=== PATIENT | female | born 1940 | race Caucasian/White ===

== ENCOUNTER 2019-01-21 08:25 | Day surgery (SDC) | payer OTHER, BC ==
[2019-01-20 14:02] VITALS: BMI 22.8
[2019-01-21 09:46] VITALS: TEMP 97.9
[2019-01-21 12:05] VITALS: BP 128/53; PULSE 70
--- NOTE | 2019-01-24 18:08 | PATH ---
Surgical Pathology Report Patient Name: ROMAN RICHTER [facility]. Rec. #: [id number] /Age/Gender: 1940 (Age: 78) / F Account: [id number] Location: U-ENDOSCOPY Taken: 01/21/2019 Received: 01/21/2019 Reported: 01/24/2019 Physicians: Chad Shi M.D. Specimen(s) Received A: BODY/ANTRUM B: GE JUNCTION C: RECTAL POLYP D: COLON BIOPSY Clinical History Gastric metaplasia surveillance, screen for Littlejohn's, polyp surveillance Postoperative diagnosis: Hiatal hernia, GERD, atrophic gastritis, rectal polyp, proximal transverse colon polyp, diverticulosis Final Diagnosis A. STOMACH, BODY/ANTRUM, BIOPSY: GASTRIC MUCOSA WITH MILD CHRONIC GASTRITIS AND FOCAL DILATED GLANDS. IMMUNOHISTOCHEMICAL STAIN FOR H. PYLORI IS NEGATIVE. B. GE JUNCTION, BIOPSY: SQUAMOUS MUCOSA WITH CHANGES OF MODERATE REFLUX ESOPHAGITIS. 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 NO DYSPLASIA IDENTIFIED. C. RECTAL POLYP, BIOPSY: HYPERPLASTIC POLYP. D. PROXIMAL TRANSVERSE COLON, POLYP, BIOPSY: TUBULAR ADENOMA. Electronically Signed Rose Sanon M.D. Gross Description A. Received in formalin, labeled "body/antrum" are 8 hensley, irregular portions of soft tissue measuring 0.2 and 0.4 cm. in greatest dimension. The specimens are submitted in toto in one cassette. B. Received in formalin, labeled "GE junction" are 6 hensley, irregular portions of soft tissue measuring 0.1 and 0.3 cm. in greatest dimension. The specimens are submitted in toto in one cassette. C. Received in formalin, labeled "rectal polyp" are 2 hensley, irregular portions of soft tissue measuring 0.2 and 0.3 cm. in greatest dimension. The specimens are submitted in toto in one cassette. D. Received in formalin, labeled "proximal transverse colon polyp" are 2 hensley, irregular portions of soft tissue measuring 0.1 and 0.2 cm. in greatest dimension. The specimens are submitted in toto in one cassette. MLSZ/01/21/2019 sanml/01/21/2019
== END 2019-01-21 10:30 | disposition home or self-care (01) ==
LOC: JASU-ENDO 08:25
PROVIDERS: ATTEND Internal Medicine Gastroenterology
PROC: 0DBL8ZX Excision of Transverse Colon, Via Natural or Artificial Opening Endoscopic, Diagnostic (ICD-10-PCS; 2019-01-21)
PROC: 0DB38ZX Excision of Lower Esophagus, Via Natural or Artificial Opening Endoscopic, Diagnostic (ICD-10-PCS; 2019-01-21)
PROC: 0DB68ZX Excision of Stomach, Via Natural or Artificial Opening Endoscopic, Diagnostic (ICD-10-PCS; 2019-01-21)
PROC: 0DBP8ZX Excision of Rectum, Via Natural or Artificial Opening Endoscopic, Diagnostic (ICD-10-PCS; principal; 2019-01-21 08:45)
DX: Z12.11 Encounter for screening for malignant neoplasm of colon (principal); Z80.0 Family history of malignant neoplasm of digestive organs; Z83.71 Family history of colonic polyps; K62.1 Rectal polyp; K64.8 Other hemorrhoids; K57.30 Diverticulosis of large intestine without perforation or abscess without bleeding; D12.3 Benign neoplasm of transverse colon; K21.9 Gastro-esophageal reflux disease without esophagitis; K44.9 Diaphragmatic hernia without obstruction or gangrene; K29.50 Unspecified chronic gastritis without bleeding
CPT/HCPCS: 88305-TC; 88342-TC

== ENCOUNTER 2020-01-19 10:56 | Emergency (ER) | payer OTHER, BC ==
[2020-01-19 11:07] VITALS: BP 154/77; PULSE 94; TEMP 98.2; BMI 21.3
--- NOTE | 2020-01-19 11:37 | PDOC ---
History of Present Illness - General Chief Complaint: Pain Stated Complaint: RT ARM PAIN Time Seen by Provider: 01/19/20 11:18 History Source: Patient Exam Limitations: No Limitations - History of Present Illness Initial Comments: 01/19/20 11:34 Patient is a 79-year-old female who presents to the ED with complaint of right axillary pain that started 2 weeks ago. She states the pain increases with movement and with touching the area. She has been full weightbearing with a wa lker starting 2 weeks ago after having a femoral shaft fracture with surgery in September 2019. The patient states that she has been pulling herself in and out of a car and feels that this may have caused her pain. She states the pain kept her up last night. She took 2 Motrin this morning which helped her tremendously. She denies any chest pain or shortness of breath. She denies any fevers or chills. Past History - Medical History Allergies/Adverse Reactions: Allergies Allergy/AdvReac Type Severity Reaction Status Date / Time Gyptoyv-Qzm-Gcv Reductase Allergy Verified 01/19/20 11:07 Inhibitor Home Medications: Ambulatory Orders Levothyroxine Sodium [Synthroid] 88 mcg PO DAILY 04/11/16 Pravastatin Sodium 20 mg PO DAILY 04/11/16 Ramipril 5 mg PO DAILY 04/11/16 Aspirin [Aspirin EC] 81 mg PO HS 04/14/16 Mag Carb/Aluminum Hydrox/Algin [Gaviscon Liquid] 30 ml PO Q4H PRN 30 Days #355 oz 01/21/19 Pantoprazole Sodium 40 mg PO HS #30 tablet. 01/21/19 Tramadol HCl 50 mg PO TID PRN 3 Days #9 tablet MDD 3 01/19/20 Asthma: Yes (CHILDHOOD ASTHMA) COPD: No GI Disorders: Yes (GERD,HIATAL HERNIA,SCHATZKI'S RING,RECTAL POLYPS,DIVERTICULOSIS,H.PYLORI) HTN: Yes Hypercholesterolemia: Yes Thyroid Disease: Yes (HYPOTHYROIDISM) - Surgical History Orthopedic Surgery: Yes (RIGHT AND LEFT TOTAL HIPOCC REPLACEMENT,RIGHT ANKLE FRACTURE SURGERY) - Reproductive History Is Patient Now?: No - Psycho-Social/Smoking History Smoking History: Never smoked Have you smoked in the past 12 months: No If you are a former smoker, when did you quit?: 1994 Information on smoking cessation initiated: No - Substance Abuse Hx (Audit-C & DAST Scrn) How often the patient has a drink containing alcohol: Never Score: In Men: 4 or > Positive; In Women: 3 or > Positive: 0 Screen Result (Pos requires Nsg. Audit-10AR): Negative In the last yr the pt used illegal drug/Rx for NonMed reason: No Score: Yes response is considered Positive: 0 Screen Result (Positive result requires Nsg. DAST-10): Negative Review of Systems - Review of Systems Comments:: 01/19/20 11:41 - Review of Systems Able to Perform ROS?: Yes Constitutional: No: Fever, Chills, Loss of Appetite, Night Sweats, Weakness HEENTM: No: Eye Pain, Vision changes, Ear Pain, Throat Pain, Throat Swelling, Mouth Pain, Difficulty Swallowing Respiratory: No: Cough, Shortness of Breath, Wheezing, Sputum Production Cardiac (ROS): No: Chest Pain, Chest Tightness, Palpitations, Irregular Heart Beat, Edema; positive: Chest wall pain right-sided ABD/GI: No: Nausea, Vomiting, Abdominal Pain, Diarrhea : No Dysuria, No Hematuria, No Frequency, No Urgency Musculoskeletal: No: Muscle Pain, Back Pain, Joint Pain, Muscle Weakness, Neck Pain Integumentary: No: Lesions, Rash Neurological: No: Headache, Numbness, Tingling, Weakness, Speech Difficulties *Physical Exam - Vital Signs Last Vital Signs Temp Pulse Resp BP Pulse Ox 98.2 F 94 H 17 154/77 97 01/19/20 11:00 01/19/20 11:00 01/19/20 11:00 01/19/20 11:00 01/19/20 11:00 - Physical Exam 01/19/20 11:41 - Physical Exam General Appearance: Nourished, Appropriately Dressed, No Distress HEENT: EOMI, Normal Voice, Hearing Grossly Normal Neck: Supple, No Lymphadenopathy (R), No Lymphadenopathy (L), No Rigidity, No Decreased range of motion Respiratory/Chest: Lungs Clear, Normal Breath Sounds. No Respiratory Distress, No Accessory Muscle Use Cardiovascular: Regular Rhythm, Regular Rate, S1, S2; reproducible right-sided chest wall pain in the axillary line appreciated. There is no rash appreciated. There is no flail chest. There is no ecchymosis. Lungs clear. Gastrointestinal/Abdominal: Normal Bowel Sounds, Soft. Non-tender, No Guarding, No Rebound, No Rigidity Musculoskeletal: Normal Inspection. No Decreased Range of Motion Extremity: Normal Capillary Refill, Normal Inspection Integumentary: Normal Color, Dry. No Rash Neurologic: care trainer II-XII NML intact, Fully Oriented, Alert, Normal Mood/Affect, Normal Response ED Treatment Course - LABORATORY CBC & Chemistry Diagram: 01/19/20 12:00 01/19/20 12:00 - RADIOLOGY Radiology Studies Ordered: Category Date Time Status CHEST PA & LAT [RAD] Stat Radiology 01/19/20 11:31 Ordered Medical Decision Making - Medical Decision Making 01/19/20 11:42 Assessment: Patient is a 79-year-old female with right chest wall pain in the axillary line for the last 2 weeks. The pain was worse last night and kept her up. She had a right femur surgery in September 2019 with prolonged decreased mobilization secondary to being nonweightbearing on the right lower extremity. The patient was using a walker to get around. Plan: -Chest x-ray ordered -Cardiac work-up ordered including d-dimer -EKG ordered -Discussed with the patient's daughter and the patient regarding work up for PE. They understand and agree with this treatment and plan. -Will reassess 01/19/20 12:08 EKG @ 11:51 NSR @ 84bpm no ST/T wave abnormalities CXR read by radiology as hyperinflated lungs, biapical scarring, no acute process, no fractures appreciated 01/19/20 12:09 01/19/20 12:53 The patient has been made aware that her d-dimer is elevated at 1083 we will do a CTA chest to rule out PE. 01/19/20 14:28 Pt is currently at CT for CTA chest to r/o PE. 01/19/20 15:30 Patient states that her pain is beginning to return. Will order tramadol for her pain. Would like to refrain from any more NSAIDs at this time since the patient took Motrin this morning and got a dye load for the CTA. Patient is pending her CTA chest read. 01/19/20 15:40 The patient has been made aware that she has an age-indeterminate right fourth rib deformity consistent with fracture. As per the radiologist the fracture appears in the mid axillary line which is where her pain is primarily. We will treat the patient as if she has a rib fracture. An incentive spirometer has b een given to the patient. We will send tramadol to her pharmacy. She should follow-up with her orthopedist or her primary doctor for further evaluation and treatment. She has been made aware that the treatment is symptomatic control. She understands and agrees with this treatment plan and she is stable for discharge. Discharge - Discharge Information Problems reviewed: Yes Clinical Impression/Diagnosis: Right rib fracture Qualifiers: Encounter type: initial encounter Rib fracture type: single rib Fracture type: closed Qualified Code(s): S22.31XA - Fracture of one rib, right side, initial encounter for closed fracture Condition: Stable Disposition: HOME - Additional Discharge Information Prescriptions: Tramadol HCl 50 mg PO TID PRN 3 Days #9 tablet MDD 3 PRN Reason: Pain - Follow up/Referral Referrals: Juan M Allan MD [Primary Care Provider] - Call tomorrow - Patient Discharge Instructions Patient Printed Discharge Instructions: DI for Rib Fracture Additional Instructions: You have a right fourth rib fracture of unknown acuity. This is likely what is causing your pain. You can take the tramadol as needed for severe pain but should avoid it if your pain is mild to moderate and take Tylenol or ibuprofen. Use the incentive spirometer as instructed to help prevent lung collapse. Fo llow-up with your primary doctor or your orthopedist within 1 to 2 days for repeat evaluation. You can continue your activity as tolerated. - Post Discharge Activity
[2020-01-19] MEDS ORDERED: SODIUM CHLORIDE 500 ML IV STA (11:38)
[2020-01-19 12:18] LABS: BASO % 0.7 % (0-2.0); EOS % 2.2 % (0-4.5); HEMATOCRIT 39.8 % (32.4-45.2); HEMOGLOBIN 13.2 GM/dL (10.7-15.3); MCH 29.8 pg (25.7-33.7); MCHC 33.1 g/dl (32.0-36.0); MEAN CELL VOLUME 89.9 fl (80-96); MEAN PLT VOLUME 7.8 fl (7.5-11.1); MONO % 10.8 % (3.8-10.2); NEUT % 57.3 % (42.8-82.8); PLATELET COUNT 270 K/MM3 (134-434); RBC 4.42 M/mm3 (3.60-5.2); RDW 14.4 % (11.6-15.6); WHITE BLOOD COUNT 6.6 K/mm3 (4.0-10.0)
[2020-01-19 12:24] LABS: INR 0.94 (0.83-1.09); PROTHROMBIN TIME (PATIENT) 11.1 SEC (9.7-13.0)
[2020-01-19 12:27] LABS: ACTIVATED PTT 31.7 SECONDS (25.2-36.5)
[2020-01-19 12:46] LABS: ALBUMIN 4.2 g/dl (3.4-5.0); ALK PHOS 91 U/L (45-117); ANION GAP 8 MMOL/L (8-16); BILIRUBIN,TOTAL 0.4 mg/dL (0.2-1); CALCIUM 9.6 mg/dL (8.5-10.1); CHLORIDE 105 mmol/L (98-107); CO2 26 mmol/L (21-32); CREATININE 0.7 mg/dL (0.55-1.3); GLUCOSE,RANDOM 101 mg/dL (74-106); POTASSIUM 4.2 mmol/L (3.5-5.1); SGOT/AST 20 U/L (15-37); SGPT/ALT 28 U/L (13-61); SODIUM 139 mmol/L (136-145); TOT PROT 7.6 g/dl (6.4-8.2)
[2020-01-19] MEDS ORDERED: traMADol HCL 50 MG TABLET PO ONE (15:30)
[2020-01-19] MEDS ORDERED: traMADol HCL 50 MG TABLET ONE (15:34)
--- NOTE | 2020-01-20 09:21 | EKG ---
Test Reason : Blood Pressure : / mmHG Vent. Rate : 084 BPM Atrial Rate : 084 BPM P-R Int : 146 ms QRS Dur : 076 ms QT Int : 388 ms P-R-T Axes : 079 -16 060 degrees QTc Int : 458 ms NORMAL SINUS RHYTHM NO PREVIOUS ECGS AVAILABLE Confirmed by ELIANA URIBE MD ([id number]) on 01/20/2020 9:21:00 AM Referred By: Confirmed By:ELIANA URIBE MD
== END 2020-01-19 16:11 | disposition home or self-care (01) ==
LOC: JERFT 10:56
PROC: 3E0337Z Introduction of Electrolytic and Water Balance Substance into Peripheral Vein, Percutaneous Approach (ICD-10-PCS; principal; 2020-01-19)
DX: S22.31XA Fracture of one rib, right side, initial encounter for closed fracture (principal)
CPT/HCPCS: 36415; 71046-TC-FY; 71275-TC; 80053; 82550; 83735; 84484; 85025; 85379; 85610; 85730; 93005; 93010; 99285-25

== ENCOUNTER 2022-01-31 05:16 | Day surgery (SDC) | payer OTHER, BC ==
[2022-01-29 15:57] VITALS: BMI 20.5
[2022-01-31] MEDS ORDERED: TRIAMCINOLONE ACET 40MG/1ML VIAL ONE (07:41)
[2022-01-31] MEDS ORDERED: LIDOCAINE HCL/PF 1% SDV 5ML VIAL ONE (07:41)
[2022-01-31] MEDS ORDERED: BUPIVACAINE HCL/PF 0.5% (5MG/ML) 10 ML VIAL ONE (07:41)
[2022-01-31 11:55] VITALS: PULSE 63
[2022-01-31] MEDS ORDERED: TRIAMCINOLONE ACET 40MG/1ML VIAL IM ONE (15:23)
[2022-01-31] MEDS ORDERED: BUPIVACAINE HCL/PF 0.5% (5MG/ML) 10 ML VIAL IJ ONE (15:23)
[2022-01-31] MEDS ORDERED: LIDOCAINE 1% P/F 10 MG/ML VIAL INF ONE (15:23)
[2022-01-31 15:42] VITALS: BP 148/63; RESP 20; TEMP 98
== END 2022-01-31 16:00 | disposition home or self-care (01) ==
LOC: JASU-SURG 05:16
PROVIDERS: ATTEND Pain Medicine Pain Medicine
PROC: 3E0U3BZ Introduction of Anesthetic Agent into Joints, Percutaneous Approach (ICD-10-PCS; 2022-01-31)
PROC: 3E0U33Z Introduction of Anti-inflammatory into Joints, Percutaneous Approach (ICD-10-PCS; principal; 2022-01-31 13:00)
DX: M53.3 Sacrococcygeal disorders, not elsewhere classified (principal)
CPT/HCPCS: 76000-TC-FY